=== PATIENT | male | born 1955 | race Two or more races ===

== ENCOUNTER 2016-09-23 05:49 | Day surgery (SDC) | payer OTHER ==
--- NOTE | 2016-09-22 16:11 | HP ---
DATE OF CLINIC: 09/18/2016 CLAUDY GARZA : 1955 PLANNED PROCEDURE: Right Carpal Tunnel Release DATE OF SURGERY: September 23, 2016 SURGEON: Ricky Martinez M.D. HISTORY OF PRESENT ILLNESS Claudy Garza is a 60 year old male. * Medication list reviewed with patient allergy list reviewed with patient. The patient is a 60 yr old male who is RHD who is here to discuss having a right carpal tunnel open release and to discuss his bilateral hand numbness. The patient has increased median nerve numbness in his right hand. This is worse at night. He states that the last 3 months have really been bad on the right side. He has had symptoms for about a year on both hands. He has not tried any splints on either hands. He states that the right thumb, index and long fingers are the worse. He had a recent EMG/NCV study confirming the diagnosis and would like to talk to me today about his options and moving forward with surgery. Overall the patient states he has been in good health. He has not had any surgeries or injections on either hand. After discussion and review of treatment options, both non-operative and surgical, the patient would like to proceed with surgery and presents today preoperatively. CURRENT MEDICATION * Ibuprofen 800 MG Tablet three times a day, 30 days, 1 refills * Omeprazole 20 MG Capsule Delayed Release TAKE 1 CAPSULE BY MOUTH ONCE DAILY BEFORE MORNING MEAL, 30 days, 5 refills * PROzac 20 MG Capsule 1 once a day, 30 days, 3 refills * QUEtiapine Fumarate 100 MG Tablet as directed: Take 1 tab nightly, 30 days, 3 refills * Simvastatin 20 MG Tablet 1 once a day, 30 days, 5 refills * Suprep Bowel Prep Solution Take 1 bottle at 5pm other bottle at 10pm the day before your procedure, 1 days, 0 refills * Vitamin D (Ergocalciferol) 68784 UNIT Capsule Take one capsule weekly x12 weeks, 84 days, 0 refills PAST MEDICAL/SURGICAL HISTORY Reported: No recent change in medical history. Medical: No reported medical history or no significant history. Reported numbness, Reported tingling, and Depression. Surgical / Procedural: Prior surgery. Diagnoses: Depression Anxiety disorder NOS Right rotator cuff surgery x3. Procedural: * Colonoscopy with ablation of tiny polyp SOUTH 12/18/15 Surgical: * Orthopedic surgery Right rotator cuff SOCIAL HISTORY Social history unchanged. Behavioral: Daily coffee consumption 1 cup daily. No tobacco use, not a current smoker, not a former smoker, and not chewing tobacco. Never smoked. Smoking status: Never smoker. Alcohol: Alcohol use drinks 1 a week a couple beers and a social drinker. Drug Use: Not using drugs. Work: Occupation RETIRED. ALLERGIES * Amitriptyline FAMILY HISTORY 3 children living Family history unchanged Reported family history of hyperlipidemia Mother diabetes, HTN father bladder ca?? Hypertension Diabetes mellitus Cancer prostate REVIEW OF SYSTEMS Systemic: No fever and no recent weight change. Cardiovascular: No chest pain or discomfort and no palpitations. Pulmonary: No cough and no wheezing. Gastrointestinal: No nausea, no vomiting, no abdominal pain, and no diarrhea. Hematologic: No easy bleeding (no blood clots). Skin: No skin lesions and no rash. PHYSICAL FINDINGS * Vitals taken 09/18/2016 10:31 am BP-Sitting L 119/74 mmHg 100 - 120/60 - 80 BP Cuff Size Regular Pulse Rate-Sitting 78 bpm 50 - 100 Pulse Rhythm Regular Temp-Oral 97.7 F 96 - 101 Height 66 in 64 - 74 Weight 176 lbs 123 - 215 Body Mass Index 28.4 kg/m2 Body Surface Area 1.89 m2 Pain Level 5 Pain Level Note right wrist General Appearance: * Well developed. * In no acute distress. Eyes: General/bilateral: Extraocular Movements: * Normal. Lungs: * Clear to auscultation. * No wheezing was heard. * No rales/crackles were heard. Cardiovascular: Heart Rate and Rhythm: * Heart rate was normal. * Heart rhythm regular. Abdomen: Palpation: * Abdominal non-tender. Neurological: * Oriented to time, place, and person. PHYSICAL FINDINGS RIGHT EXTREMITY Wrist Appearance: no gross abnormalities appreciated, no rashes or abrasions AROM Flexion: 60 degrees Extension: 40 degrees Supination: 80 degrees Pronation: 90 degrees Palpation the wrist is non-tender to touch Strength (0-5/5) Elbow Flexion: 5/5 Elbow Extension: 5/5 Wrist Flexion: 5/5 Wrist Extension: 5/5 Wrist Supination: 5/5 Wrist Pronation: 5/5 Copyholder: 5/5 Intrinsics: 5/5 EPL, FF, FE: 5/5 Pinch Mechanism: Normal Sensation (Wrist): gross sensation to light touch is present Median: Decreased Ulnar: Normal Radial: Normal Vascular Exam Radial Pulse: 2+ Other (Wrist) Atrophy/Asymmetry: None Surgical Scars: None Thelma's Test: Negative Tinel's Test - Carpal Tunnel: Negative Phalen's Test: POSITIVE Median Nerve Compression Test: POSITIVE PHYSICAL FINDINGS LEFT EXTREMITY Wrist Appearance: The patient has a gross abnormality of the left pinky finger with fixed flexion contractures of the pinky finger PIP and DIP joints from a previous trauma. no rashes or abrasions AROM Flexion: 60 degrees Extension: 45 degrees Supination: 80 degrees Pronation: 90 degrees Palpation the wrist is non-tender to touch Strength (0-5/5) Elbow Flexion: 5/5 Elbow Extension: 5/5 Wrist Flexion: 5/5 Wrist Extension: 5/5 Wrist Supination: 5/5 Wrist Pronation: 5/5 Copyholder: 5/5 Intrinsics: 5/5 EPL, FF, FE: 5/5 Pinch Mechanism: Normal Sensation (Wrist): gross sensation to light touch is present Median: Decreased (not as dense as the right side) Ulnar: Normal Radial: Normal Vascular Exam Radial Pulse: 2+ Other (Wrist) Atrophy/Asymmetry: None Surgical Scars: None Thelma's Test: Negative Tinel's Test - Carpal Tunnel: Negative Phalen's Test: Negative Median Nerve Compression Test: POSITIVE (mild symptoms on exam today) TESTS * Test: CBC NO DIFF Report Date: 09/18/2016 WBC 5.6 10*3/mL MCV 87.9 fL RBC 5.03 10*6/uL MCH 28.4 pg MCHC 32.4 g/dL Low RDW 13.1 % PLATELET COUNT 191 10*3/mL HCT 44.2 % HGB 14.3 g/L * Test: BASIC METABOLIC PROFILE Report Date: 09/18/2016 BUN 18 mg/dL BUN/CREAT RATIO 20 CALCIUM 9.5 mg/dL GLUCOSE 84 mg/dL CREATININE 0.9 mg/dL SODIUM 141 meq/L POTASSIUM 4.2 meq/L CHLORIDE 103 meq/L CARBON DIOXIDE 32 meq/L High ANION GAP 10 meq/L GFR 86 High IMAGING 07.30.2016--EMG/NCV--findings consistent with sever right carpal tunnel symptoms and mild left carpal tunnel symptoms. 09.03.2016--3 views of the right wrist and left wrist are negative for any signs of fracture, dislocation or arthritis. the radiologist felt that there is slight narrowing of the radial carpal joint bilaterally. ASSESSMENT Ricky Martinez MD made the following assessments * Carpal tunnel syndrome -right wrist * Carpal tunnel syndrome -left wrist PLAN * OTHER Ulman 5-325 MG TABS, as directed: one to two tabs by mouth every 4-6 hours as needed for pain after surgery, 30 days, 0 refills Ricky Martinez MD ordered the following therapy * Decompression of median nerve at carpal tunnel -right THERAPY * Patient not eligible for fall risk assessment. SURGICAL CONSENT We have discussed surgical options including right open carpal tunnel release and non-operative management. The patient and I spoke about his clinical findings. I do think the patient would benefit from a release but I told him that I cannot guarantee a complete resolution of his symptoms. I think the goal of the surgery is to stop the progression of his symptoms. We spoke about common complications associated with the procedure such as pillar pain, infection, injury to the median nerve and its branches and surrounding blood vessels as well as anesthesia risks. The patient signed the consent form and we spoke about the post-op plan. The patient was counseled in detail regarding the diagnosis, treatment options available, prognosis of each treatment option and the potential risks and complications. The risks of surgery include, but are not limited to, anesthetic , neurovascular complications, pulmonary embolism, deep vein thrombosis, wound dehiscence, failure of any or all of the discussed procedures, infection of the joint or surrounding soft tissue, need for revision surgery, chronic pain, limitations in activities of daily living, inability to return to work, and loss of normal range of motion or functional use of the extremity. There is the possibility of failure over time that may require additional operative or non-operative treatment. The patient acknowledged that there are a number of perioperative risks not mentioned here and would still like to proceed. The patient is aware of and understands these risks, and wishes to proceed with the proposed surgical procedure and other procedures as indicated at the time of surgery. We will have the patient see their PCP for a preoperative medical risk assessment. The preoperative instructions were reviewed with the patient and all questions were answered. CARE TEAM [facility] Maria Fernanda Francisco, DIRECTOR OF SEARCH ENGINE MARKETING Counseling Jadiel Espinosa MD Family Practice Edwar Young MD Surgery BLP/sg
[~2016-09-23 05:49] MED LIST: CEFAZOLIN SODIUM 2 GRAM PREMIX 100 ML IV PRN; IV START KIT ONE; LACTATED RINGERS 1,000 ML ONE
[2016-09-23] MEDS ORDERED: CEFAZOLIN SODIUM 2 GRAM PREMIX 100 ML IV ONE (06:16)
[2016-09-23] MEDS ORDERED: PROPOFOL 20 ML IV ONE ×2 (06:21→07:26)
[2016-09-23] MEDS ORDERED: ROCURONIUM BROMIDE 10 MG/ML DOSE IV ONE ×10 (06:21→06:22)
[2016-09-23] MEDS ORDERED: LIDOCAINE 2% (PRES FREE) 5 ML VIAL ONE (06:22)
[2016-09-23] MEDS ORDERED: BUPIVACAINE 0.5% (PRES FREE) 30 ML VIAL ONE (06:44)
[2016-09-23] MEDS ORDERED: IV START KIT ONE (07:01)
[2016-09-23] MEDS ORDERED: FENTANYL 100 MCG/2 ML VIAL ONE (07:12)
[2016-09-23] MEDS ORDERED: MIDAZOLAM HCL 1 MG/ML 2ML VIAL ONE (07:17)
[2016-09-23] MEDS ORDERED: ONDANSETRON 4 MG/2ML 2 ML VIAL IV PRN (08:11)
[2016-09-23] MEDS ORDERED: HYDROCODONE/ACETAMINOPHEN 5/325MG TABLET PO PRN (08:11)
[2016-09-23] MEDS ORDERED: ACETAMINOPHEN 325 MG TABLET PO PRN (08:11)
[2016-09-23] MEDS ORDERED: MORPHINE SULFATE 2 MG/ML SYRINGE IV PRN (08:11)
[2016-09-23] MEDS ORDERED: DIPHENHYDRAMINE HCL 50 MG/1 ML VIAL IV PRN (08:11)
--- NOTE | 2016-09-23 08:11 | PCMBPN ---
Brief Post Op Note: Date of Procedure: 09/23/16 Preoperative Diagnosis: 1. right hand carpal tunnel syndrome Postoperative Diagnosis: 1. [Same] Procedure: right hand open carpal tunnel release Surgeon: Ricky Martinez MD Assist:None Anesthesia: MAC, 9mL of 0.5% marcaine without epi injected into the incision at the end of the case Findings: as expected, the transverse carpal ligament was transected as the median nerve was protected Condition: extubated, stable vitals, transferred to pacu Complications: None IV Fluids: 500 mLs of LR Urine Output: 0 mLs Estimated Blood Loss: 5 mLs Tourniquet Time: 10 min at 250mmHg Specimens: [N/A] Implants: None Drains: [N/A] PLAN: NWB on the RUEFederica Cedillo for pain control. ANcef for evin-op abx
[2016-09-23] MEDS ORDERED: LACTATED RINGERS 1,000 ML IV SCH (08:15)
[2016-09-23] MEDS ORDERED: MORPHINE SULFATE 4 MG/ML SYRINGE IV PRN (08:21)
[2016-09-23] MEDS ORDERED: MORPHINE SULFATE 10 MG/ML SYRINGE IV PRN (08:26)
--- NOTE | 2016-09-24 10:43 | OP ---
Claudy GARZA : 1955 [id number] DATE OF PROCEDURE: September 23, 2016 PREOPERATIVE DIAGNOSIS: Right hand carpal tunnel syndrome. POSTOPERATIVE DIAGNOSIS: Right hand carpal tunnel syndrome. PROCEDURE: RIGHT HAND OPEN CARPAL TUNNEL RELEASE. SURGEON: Ricky Martinez M.D. BLACKJACK DEALER: None. ANESTHESIA: Monitored anesthesia care along with 9 mL of 0.5% Marcaine without epinephrine injected into the incision site at the end of the case. FINDINGS: As suspected the transverse carpal ligament was transected as the median nerve was protected. CONDITION: The patient was extubated with stable vital signs and transferred to the PACU. COMPLICATIONS: None. INTRAVENOUS FLUIDS: 500 mL of Lactated Ringer's. URINE OUTPUT: 0 mL ESTIMATED BLOOD LOSS: 5 mL SPECIMENS: N/A TOURNIQUET TIME: 10 minutes at 250 mmHg. IMPLANTS: None. DRAINS: N/A PLAN: The patient will be nonweight-bearing on the right upper extremity. [facility] will be given for pain control and Ancef for perioperative antibiotics. INDICATIONS: The patient is a 60-year-old male with persistent right hand numbness and tingling that hurts worse at night. His primary care physician ordered an EMG/nerve conduction study which was concerning for entrapment of the median nerve at the carpal tunnel. Clinical exam was concerning for this as well. We discussed the facts of the natural history of this condition. I talked to him about nonoperative options continuing to wear a night splint as well as a steroid injection. After discussing this with the patient he opted to proceed with surgery. I described how an open surgical release involves releasing the pressure but does not guarantee a complete resolution of his symptoms. The goal of the surgery is to stop the progression of his symptoms. We spoke about the risks associated with a surgery such as pillar pain, infection, injury to the median nerve and its branches and to surrounding blood vessels as well as risk of anesthesia. After discussing this at length, the patient decided to proceed with surgery. The patient is a 60-year-old, right hand dominant male who has a history of right carpal tunnel syndrome. The patient has had persistent symptoms with the right hand and has failed nonoperative treatment. After reviewing the options, the patient wanted to proceed with surgery. I reviewed with the patient the risks and benefits of surgery that include, but are not limited to persistent pain, persistent paraesthesias, as well as possible injury to local nerves and blood vessels. I emphasized that though these complications are rare they do occur. The patient understands this and would like to proceed with surgery. PROCEDURE DESCRIPTION: Prior to taking the patient to the operating room, I signed and updated the History and Physical and confirmed with the patient that there were no changes. I signed the patient's right hand with my initials and the word "yes." After reviewing the risks and benefits of anesthesia with the anesthesia team the patient was ready to enter the OR. At this point the patient was brought from the preoperative area to the operating suite where the patient was placed on the OR bed in a supine position with a safety belt in place. The patient's right arm was placed on a on a hand table. A safety belt was secured on the patient's waist. The patient had bilateral SCDs on each foot for intra-operative DVT prophylaxis. Now the bed was turned 45 degrees. The patient had a non-sterile tourniquet placed on the arm and the tourniquet was set at 250mmHg. After this was checked, a Betadine scrub, paint and chlorhexidine prep was used to prep the right upper extremity. At this point a final time-out was performed. We confirmed that the patient's correct images were brought up on the view box. This included xrays of the right hand. In this final time-out we confirmed that the right side was the correct side that our procedure was a right carpal tunnel release and that the appropriate antibiotics 2 g of Ancef were administered approximately 20 minutes prior to this time out. After the final time out, I used a sterile marker to draw a line from Martel's line designating the distal extent of my incision, which is lined up with the radial border of the ring finger by the wrist crease. The incision itself was 2.5cm in long which extended approximately to 1 finger breadth distal to the volar wrist crease. The incision was then injected with local anesthetic. At this point I used an Esmarch to exsanguinate the arm and I used a #15 blade to incise the skin after the tourniquet was elevated. A 90 degree hemostat was used to bluntly dissect through the subcutaneous tissue to the palmar fascia. A [place] retractor was then used to incise the palmar fascia and the transverse carpal ligament was then exposed. At this point I used the 90 degree clamp to dissect distally to find the distal extent of the transverse carpal ligament. A small area of fat was visualized. This would be the distal extent of the incision taking care to avoid the superficial radial arch more distally. A freer elevator was placed in the carpal tunnel superficial to the median nerve going from distal to proximal making sure the median nerve was protected. A freer elevator was placed in a manner so that it was radial to the hook of the hamate and I confirmed that I was not in Guyon's canal. At this point the transverse carpal ligament was incised with a [employer] [place] [place] [employer] [place] blade using the freer elevator to protect the median nerve. The proximal aspect of the incision was elevated with a [place] retractor and using blunt Malik scissors to free above and below the transverse carpal fascia that extended to the forearm fascia. Once this was expanded the proximal fascia was released under direct visualization. I was able to put my freer elevator proximally as well as distally confirming there were no bands still compressing the median nerve of the carpal tunnel. I then had the tourniquet dropped. I confirmed good hemostasis and inspected the nerve noting no abnormalities were appreciated. The bipolar cautery was used to coagulate some of the skin bleeders. The wound was then irrigated with normal saline. I then closed the wound with 4 horizontal mattress sutures. I then injected some local anesthetic (0.5% marcaine without epinephrine) for post-op pain relief. Xeroform, 4x4, Webril and a volar plaster splint with 2 SUSAN wraps was used for a dressing. At the end of the case all sponge and needle counts were correct. In the postop area the patient was awake and alert. The patient was able to fire her EPL, FF, FE, and intrinsics without a problem in her post-op splint. She had good pain control. The patient will return to my clinic in approximately 1 week to see if her incision is healed and ready to remove sutures. Job [id number] CC: [facility]
== END 2016-09-23 19:24 | disposition home or self-care (01) ==
LOC: SDC 05:49
PROVIDERS: ATTEND Orthopaedic Surgery
PROC: 01N50ZZ Release Median Nerve, Open Approach (ICD-10-PCS; principal; 2016-09-23)
DX: G56.03 Carpal tunnel syndrome, bilateral upper limbs (principal); F32.9 Major depressive disorder, single episode, unspecified; F41.9 Anxiety disorder, unspecified; Z86.010 Personal history of colon polyps; Z88.8 Allergy status to other drugs, medicaments and biological substances